=== PATIENT | female | born 1965 | race Caucasian/White ===

== ENCOUNTER 2018-04-26 15:25 | Emergency (ER) | payer OTHER ==
[~2018-04-26] VITALS: Ht 165.1 cm; Wt 100.0 kg
[2018-04-26] MEDS ORDERED: TRAM50TA4 PO (15:35)
[2018-04-26] MEDS ORDERED: NAPR250T4 PO (15:35)
[2018-04-26] MEDS ORDERED: IBUPROFEN 600 MG TABLET PO ONE (15:45)
[2018-04-26] MEDS ORDERED: ACETAMINOPHEN 500 MG TABLET PO ONE (15:45)
[2018-04-26] MEDS ORDERED: LIDOCAINE 5% TRANSDERMAL PATCH TD ONE (15:45)
[2018-04-26 16:46] VITALS: BP 134/72
== END 2018-04-26 17:32 | disposition home or self-care (01) ==
LOC: EMS 15:26
DX: M54.5 Low back pain (principal); I10 Essential (primary) hypertension; Z79.899 Other long term (current) drug therapy; V49.40XA Driver injured in collision with unspecified motor vehicles in traffic accident, initial encounter; Y93.89 Activity, other specified; Y92.89 Other specified places as the place of occurrence of the external cause; Y99.8 Other external cause status
CPT/HCPCS: 72100; 72220